=== PATIENT | female | born 1980 | race Two or more races ===

== ENCOUNTER 2025-02-22 09:39 | Outpatient (CLI) | payer OTHER | END 2025-02-22 09:40 | disposition home or self-care (01) | LOC: NUCLEAR 09:39 | PROVIDERS: ATTEND Internal Medicine Cardiovascular Disease | DX: I49.9 Cardiac arrhythmia, unspecified (principal); R01.2 Other cardiac sounds; R07.9 Chest pain, unspecified ==

== ENCOUNTER 2025-02-23 08:26 | Outpatient (CLI) | payer OTHER | END 2025-02-23 08:27 | disposition home or self-care (01) | LOC: NUCLEAR 08:26 | PROVIDERS: ATTEND Internal Medicine Cardiovascular Disease | DX: R07.9 Chest pain, unspecified (principal); I49.9 Cardiac arrhythmia, unspecified; R01.2 Other cardiac sounds ==